=== PATIENT | female | born 1980 | race Caucasian/White ===

== ENCOUNTER 2016-05-22 09:29 | Emergency (ER) | payer OTHER ==
[2016-05-22] MEDS ORDERED: ONDANSETRON INJ 4 MG/2 ML VIAL IV ONE (10:17)
[2016-05-22 10:19] VITALS: TEMP 97.9
--- NOTE | 2016-05-22 11:03 | RAD ---
PROCEDURE: X-ray chest and three views of the abdomen Clinical History: lower abd pain Indication: Same as above Comparison: None Technique: 3.0 views of the abdomen and pelvis were done. Single view of the chest was done Findings: There is no gross evidence of free air in the abdomen or the pelvis . The small and large bowel gas pattern does not show any evidence of obstruction, ileus or bowel wall thickening. There is no visualization of radiopaque calculi in the outline of the urinary tract. There are no airspace infiltrates or pleural effusions. There are no pneumothoraces. The cardiac mediastinal silhouette is unremarkable There is presence of mild constipation. Impression: There is presence of mild constipation. There are no acute findings in the chest. Location of Interpretation: [id number] Electronically signed by: Manuel Horton MD 05/22/2016 11:02 AM SENIOR TREASURY ANALYST
[2016-05-22] MEDS ORDERED: LIDOCAINE VIS-MYLANTA 30 ML UD PO ONE (11:41)
[2016-05-22] MEDS ORDERED: MAGNESIUM HYDROXIDE 30 ML UD PO ONE (12:34)
--- NOTE | 2016-05-22 12:37 | ED.PDOC ---
History of Present Illness - General Chief Complaint: Abdominal Pain Stated Complaint: ABDOMINAL PAIN/NAUSEA Time Seen by Provider: 05/22/16 09:41 Source: patient Exam Limitations: no limitations - History of Present Illness Initial Comments: the patient is a 35-year-old female presenting to the emergency room secondary to approximately 12-16 hours of abdominal discomfort. Abdominal pain is worse in the lower abdomen primarily suprapubically but is also somewhat moving in nature. She is having some back pain to bilateral flanks with it. She is having some mild nausea with it. She does have some constipation problems. She has not had any fevers. Her only abdominal surgery is a tubal ligation. She is not having any pain is localizing to the right lower quadrant. Discomfort to palpation is slightly more in the suprapubic area but is fairly generalized. There is a large amount of palpable stool. No rebound or peritoneal signs. The patient denies diarrhea. She has not actually thrown up but has been nauseated. Severity: moderate Improving Factors: nothing Worsening Factors: nothing Associated Symptoms: loss of appetite, malaise, nausea/vomiting Allergies/Adverse Reactions: Allergies NO KNOWN ALLERGY Allergy (Unverified 01/01/16 09:24) Home Medications: Ambulatory Orders Lorazepam [Ativan] 1 mg PO BEDTIME 01/01/16 Paroxetine HCl [Paxil] 10 mg PO DAILY 01/01/16 Review of Systems - Review of Systems Constitutional: States: malaise EENTM: States: no symptoms reported Respiratory: States: no symptoms reported Cardiology: States: no symptoms reported Gastrointestinal/Abdominal: States: abdominal pain, constipation, nausea Genitourinary: States: frequency Musculoskeletal: States: back pain Skin: States: no symptoms reported Neurological: States: no symptoms reported All other Systems: No Change from Baseline Past Medical History (General) - Patient Medical History Hx Stroke: No Hx Asthma: No Hx Cardiac Disorders: No Hx Congestive Heart Failure: No Hx Diabetes: No Hx Gastroesophageal Reflux: No Hx MRSA: No - Vaccination History Hx Tetanus, Diphtheria Vaccination: Yes Hx Influenza Vaccination: No Hx Pneumococcal Vaccination: No - Social History Hx Tobacco Use: Yes Hx Chewing Tobacco Use: No Hx Alcohol Use: No Hx Substance Use: No Hx Substance Use Treatment: No Hx Depression: Yes Hx Physical Abuse: No Hx Emotional Abuse: No Hx Suspected Abuse: No - Female History Patient is a Female of Child Bearing Age (10 -59 yrs old): Yes Patient : No Family Medical History - Family History Mother Family History: Unknown Living Status: Unknown Maternal Grandparents Hx Cardiac Disease: Yes Hx Family Cancer: Yes - breast Physical Exam - Physical Exam General Appearance: Alert, Other - the patient is obviously uncomfortable Eye Exam: bilateral normal Ears, Nose, Throat: hearing grossly normal, normal ENT inspection, normal pharynx Neck: full range of motion, supple, normal inspection Respiratory: chest non-tender, lungs clear, normal breath sounds, no respiratory distress, no accessory muscle use Cardiovascular/Chest: normal peripheral pulses, regular rate, rhythm, no edema Peripheral Pulses: radial,right: 2+, radial,left: 2+, dorsalis pedis,right: 2+, dorsalis pedis,left: 2+ Gastrointestinal/Abdominal: soft, other - see history of present illness. No pulsatile palpable masses. Rectal Exam: deferred Back Exam: normal inspection, no CVA tenderness, no vertebral tenderness Extremity: normal range of motion, non-tender, normal inspection, no pedal edema , no calf tenderness, normal capillary refill Neurologic: alert, normal mood/affect, oriented x 3 Skin Exam: normal color Comments: Vital Signs - 24 hr 05/22/16 05/22/16 09:55 11:25 Temperature 97.9 F Pulse Rate [ 86 79 LEFT BRACHIAL] Respiratory 20 16 Rate Blood Pressure 99/64 113/71 [LAC] O2 Sat by Pulse 96 97 Oximetry repeat blood pressures systolic have ranged from 100-120. The patient has remained afebrile. No tachycardia. Progress - Progress Progress: 05/22/16 12:39 the patient is a 35-year-old female presenting with diffuse abdominal pain with radiation to bilateral flanks. Lab work and vitals are reassuring for a lack of infection. No evidence of urinary tract infection. No elevation of the white blood cell count. There is no localization of abdominal pain. X- ray is consistent with constipation. The pain pattern itself is consistent with constipation. Vital signs have remained stable. The patient will be treated for constipation with a dose of milk of magnesia here. She needs to take 2 tablespoons of castor oil when she gets home. Additionally she needs to increase her fluid intake and she needs to ambulate in order to stimulate bowel function. Once she has cleaned out she needs to take MiraLAX 2-3 times per week and increase her fiber intake. ER warnings were given for any worsening. If her abdominal pain worsens or the clinical picture changes then she may need a CT scan. One is not indicated at this time. Follow-up with primary care doctor early next week. 05/22/16 12:44 - Results/Orders Results/Orders: Laboratory Tests 05/22/16 05/22/16 05/22/16 09:42 10:05 10:30 WBC 7.9 RBC 4.75 Hgb 12.7 Hct 38.7 MCV 81.5 MCH 26.8 L MCHC 32.9 L RDW 15.4 H Plt Count 200 MPV 9.8 Absolute Neuts (auto) 6.00 Absolute Lymphs (auto) 1.30 Absolute Monos (auto) 0.40 Absolute Eos (auto) 0.20 Absolute Basos (auto) 0.00 Neutrophils % 76.1 Lymphocytes % 16.2 L Monocytes % 5.0 Eosinophils % 2.3 Basophils % 0.4 PT 10.5 INR 0.930 PTT (SP) 30.4 Sodium 141 Potassium 3.8 Chloride 107 Carbon Dioxide 26 Anion Gap 11.8 L BUN 11 Creatinine 0.71 BUN/Creatinine Ratio 15.5 Random Glucose 74 Serum Osmolality 279.3 Calcium 9.2 Total Bilirubin < 0.2 L AST 20 ALT 16 Alkaline Phosphatase 84 Creatine Kinase 71 CK-MB (CK-2) 1.3 CK-MB (CK-2) % Not Reportable Troponin I < 0.02 B-Natriuretic Peptide 13.6 Serum Total Protein 7.7 Albumin 4.0 Globulin 3.7 H Albumin/Globulin Ratio 1.1 Amylase 68 Lipase 32 Urine Color Yellow Urine Appearance Clear Urine pH 6.0 Ur Specific [place] 1.025 Urine Protein Negative Urine Glucose (UA) Negative Urine Ketones Negative Urine Blood Trace-intact H Urine Nitrite Negative Urine Bilirubin Negative Urine Urobilinogen 0.2 Ur Leukocyte Esterase Negative Urine RBC 1-3 Urine WBC 0 Ur Epithelial Cells 1-3 Urine Bacteria 0 Urine HCG, Qual Negative abdominal series shows no evidence of perforation or abnormal bowel gas pattern. No pneumonia. There is significant constipation. Departure - Departure Clinical Impression: Constipation by delayed colonic transit Disposition: Discharge to Home or Self Care Condition: Fair Departure Forms: ED Discharge - Pt. Copy, Patient Portal Self Enrollment Instructions: DI for Constipation Diet: regular diet - high fiber and increase fluid intake Activity: increase activity as tolerated Referrals: Deric Castillo MD [Primary Care Provider] - 1-5 Days Home Medications: Ambulatory Orders Lorazepam [Ativan] 1 mg PO BEDTIME 01/01/16 Paroxetine HCl [Paxil] 10 mg PO DAILY 01/01/16 Additional Instructions: the patient is a 35-year-old female presenting with diffuse abdominal pain with radiation to bilateral flanks. Lab work and vitals are reassuring for a lack of infection. No evidence of urinary tract infection. No elevation of the white blood cell count. There is no localization of abdominal pain. X- ray is consistent with constipation. The pain pattern itself is consistent with constipation. Vital signs have remained stable. The patient will be treated for constipation with a dose of milk of magnesia here. She needs to take 2 tablespoons of castor oil when she gets home. Additionally she needs to increase her fluid intake and she needs to ambulate in order to stimulate bowel function. Once she has cleaned out she needs to take MiraLAX 2-3 times per week and increase her fiber intake. ER warnings were given for any worsening. If her abdominal pain worsens or the clinical picture changes then she may need a CT scan. One is not indicated at this time. Follow-up with primary care doctor early next week.
[2016-05-22 13:07] VITALS: BP 115/71; O2SAT 99
== END 2016-05-22 12:55 | disposition home or self-care (01) ==
LOC: ER 09:29
DX: K59.01 Slow transit constipation (principal); Z87.891 Personal history of nicotine dependence
CPT/HCPCS: 36415; 74020; 80053; 81001; 81025; 82150; 82550; 82553; 83690; 83880; 84484; 85025; 85610; 85730; 87040; J2405

== ENCOUNTER 2017-03-03 19:17 | Emergency (ER) | payer SELFPAY ==
[2017-03-03 19:34] VITALS: TEMP 98.3; O2SAT 100
[2017-03-03] MEDS ORDERED: IBUPROFEN 200 MG TAB PO ONE (20:18)
--- NOTE | 2017-03-03 20:22 | ED.PDOC ---
History of Present Illness - General Chief Complaint: ENT Problem Stated Complaint: sore throat Time Seen by Provider: 03/03/17 19:37 Source: patient Exam Limitations: no limitations - History of Present Illness Initial Comments: the patient is a 36-year-old female presenting to the emergency room secondary to a sore throat and runny nose starting 6-8 hours ago. No shortness of breath. Very mild clearing cough. Low-grade fever. No vomiting. No syncope. No chest pain. No shortness of breath. Timing/Duration: 4-6 hours Severity: moderate Improving Factors: nothing Worsening Factors: nothing Associated Symptoms: loss of appetite, malaise Allergies/Adverse Reactions: Allergies NO KNOWN ALLERGY Allergy (Unverified 01/01/16 09:24) Home Medications: Ambulatory Orders Lorazepam [Ativan] 1 mg PO BEDTIME 01/01/16 Paroxetine HCl [Paxil] 10 mg PO DAILY 01/01/16 Review of Systems - Review of Systems Constitutional: States: fever, malaise EENTM: States: nose congestion, throat pain Respiratory: States: cough Cardiology: States: no symptoms reported Gastrointestinal/Abdominal: States: no symptoms reported Genitourinary: States: no symptoms reported Musculoskeletal: States: other - mild body aches Skin: States: no symptoms reported Neurological: States: no symptoms reported Endocrine: States: no symptoms reported Hematologic/Lymphatic: States: no symptoms reported All other Systems: No Change from Baseline Past Medical History (General) - Patient Medical History Hx Stroke: No Hx Asthma: No Hx Cardiac Disorders: No Hx Congestive Heart Failure: No Hx Diabetes: No Hx Gastroesophageal Reflux: No Hx Cancer: No Hx Hepatitis C: No Hx MRSA: No - Vaccination History Hx Tetanus, Diphtheria Vaccination: Yes Hx Influenza Vaccination: No Hx Pneumococcal Vaccination: No Immunizations Up to Date: Yes - Social History Hx Tobacco Use: Yes Hx Chewing Tobacco Use: No Hx Alcohol Use: No Hx Substance Use: No Hx Substance Use Treatment: No Hx Depression: Yes Hx Physical Abuse: No Hx Emotional Abuse: No Hx Suspected Abuse: No - Female History Patient is a Female of Child Bearing Age (10 -59 yrs old): Yes Patient : No Family Medical History - Family History Mother Family History: Unknown Living Status: Unknown Maternal Grandparents Hx Cardiac Disease: Yes Hx Family Cancer: Yes - breast Physical Exam - Physical Exam General Appearance: Alert, No apparent distress Eye Exam: bilateral normal Ears, Nose, Throat: hearing grossly normal, nasal congestion, pharyngeal erythema Neck: full range of motion, supple Respiratory: lungs clear, normal breath sounds, no respiratory distress, no accessory muscle use Cardiovascular/Chest: normal peripheral pulses, regular rate, rhythm, no edema Peripheral Pulses: radial,right: 2+, radial,left: 2+, dorsalis pedis,right: 2+, dorsalis pedis,left: 2+ Gastrointestinal/Abdominal: non tender, soft Rectal Exam: deferred Back Exam: normal inspection, no CVA tenderness Extremity: non-tender, normal inspection, no pedal edema, normal capillary refill Neurologic: carpenter rough II-XII nml as tested, no motor/sensory deficits, alert, normal mood/affect, oriented x 3 Skin Exam: normal color Comments: Vital Signs - 8 hr 03/03/17 03/03/17 19:30 19:31 Temperature 98.3 F Pulse Rate [ 105 H 105 H Left Radial] Respiratory 18 18 Rate Blood Pressure 136/84 [Right Arm] O2 Sat by Pulse 100 Oximetry Progress - Progress Progress: 03/03/17 20:21 the patient is a 36-year-old presenting with a sore throat and a runny nose. She has tested negative for flu and strep. The patient appears to have a common cold or viral upper respiratory tract infection. She needs to keep well hydrated. She can take Motrin every 8 hours with food to help reduce symptoms. Chloraseptic additionally may help reduce sore throat symptoms. Symptoms typically last 5-7 days. ER warnings were given for any acute worsening. Departure - Departure Clinical Impression: Common cold Disposition: Discharge to Home or Self Care Condition: Fair Departure Forms: ED Discharge - Pt. Copy, Patient Portal Self Enrollment Instructions: DI for Common Cold Diet: regular diet Activity: increase activity as tolerated Referrals: Deric Castillo MD [Primary Care Provider] - 1-5 Days Home Medications: Ambulatory Orders Lorazepam [Ativan] 1 mg PO BEDTIME 01/01/16 Paroxetine HCl [Paxil] 10 mg PO DAILY 01/01/16 Additional Instructions: the patient is a 36-year-old presenting with a sore throat and a runny nose. She has tested negative for flu and strep. The patient appears to have a common cold or viral upper respiratory tract infection. She needs to keep well hydrated. She can take Motrin every 8 hours with food to help reduce symptoms. Chloraseptic additionally may help reduce sore throat symptoms. Symptoms typically last 5-7 days. ER warnings were given for any acute worsening.
[2017-03-03 20:31] VITALS: BP 128/74
== END 2017-03-03 20:31 | disposition home or self-care (01) ==
LOC: ER 19:17
DX: J00 Acute nasopharyngitis [common cold] (principal)

== ENCOUNTER 2017-10-10 19:42 | Emergency (ER) | payer OTHER ==
[2017-10-10 19:56] VITALS: TEMP 98.2; O2SAT 99
[2017-10-10] MEDS ORDERED: HYDROcodone 7.5MG/APAP 325MG 1 EA TAB PO ONE (21:58)
--- NOTE | 2017-10-10 22:00 | ED.PDOC ---
History of Present Illness - General Chief Complaint: Problem Stated Complaint: supra pubic pain, pink tinge urine Time Seen by Provider: 10/10/17 19:47 Source: patient Exam Limitations: no limitations - History of Present Illness Initial Comments: the patient is a 37-year-old female presenting to the emergency room secondary to some lower abdominal and pelvic discomfort present for the last 24- 48 hours. She does have some significant chronic constipation and has been a little more constipated than normal recently. She had a hysterectomy approximately 3 months ago. She is not having any fevers. No significant vaginal discharge. No difficulty with urination. No burning. Timing/Duration: unsure Severity: moderate Improving Factors: nothing Worsening Factors: nothing Associated Symptoms: denies symptoms Allergies/Adverse Reactions: Allergies NO KNOWN ALLERGY Allergy (Unverified 01/01/16 09:24) Home Medications: Ambulatory Orders Lorazepam [Ativan] 1 mg PO BEDTIME 01/01/16 Escitalopram [Lexapro] 10 mg PO 10/10/17 Review of Systems - Review of Systems Constitutional: States: no symptoms reported EENTM: States: no symptoms reported Respiratory: States: no symptoms reported Cardiology: States: no symptoms reported Gastrointestinal/Abdominal: States: see HPI Genitourinary: States: see HPI Musculoskeletal: States: no symptoms reported Skin: States: no symptoms reported Neurological: States: no symptoms reported Endocrine: States: no symptoms reported All other Systems: No Change from Baseline Past Medical History (General) - Patient Medical History Hx Stroke: No Hx Asthma: No Hx Cardiac Disorders: No Hx Congestive Heart Failure: No Hx Diabetes: No Hx Gastroesophageal Reflux: No Hx Cancer: No Hx Hepatitis C: No Hx MRSA: No Surgical History: Hysterectomy - Vaccination History Hx Tetanus, Diphtheria Vaccination: Yes Hx Influenza Vaccination: No Hx Pneumococcal Vaccination: No Immunizations Up to Date: No - Social History Hx Tobacco Use: Yes Hx Chewing Tobacco Use: No Hx Alcohol Use: No Hx Substance Use: No Hx Substance Use Treatment: No Hx Depression: Yes Hx Physical Abuse: No Hx Emotional Abuse: No Hx Suspected Abuse: No - Female History Patient : No Family Medical History - Family History Mother Family History: Unknown Living Status: Unknown Maternal Grandparents Hx Cardiac Disease: Yes Hx Family Cancer: Yes - breast Physical Exam - Physical Exam General Appearance: Alert, Comfortable, No apparent distress Eye Exam: bilateral normal Ears, Nose, Throat: normal ENT inspection, normal pharynx Neck: full range of motion, supple Respiratory: lungs clear, normal breath sounds, no respiratory distress, no accessory muscle use Cardiovascular/Chest: normal peripheral pulses, regular rate, rhythm, no edema Peripheral Pulses: radial,right: 2+, radial,left: 2+, dorsalis pedis,right: 2+, dorsalis pedis,left: 2+ Gastrointestinal/Abdominal: soft, other - mild suprapubic discomfort palpation. No definite palpable mass. No rebound or peritoneal signs. Rectal Exam: other - pelvic exam shows minimal discharge. No definite cervical motion tenderness. No bleeding. No obvious mass. Back Exam: no CVA tenderness, no vertebral tenderness Extremity: non-tender, normal inspection, no pedal edema, normal capillary refill Neurologic: chalk cutter II-XII nml as tested, alert, normal mood/affect, oriented x 3 Skin Exam: normal color Comments: Vital Signs - 24 hr 10/10/17 19:53 Temperature 98.2 F Pulse Rate [ 88 Right] Respiratory 20 Rate Blood Pressure 111/74 [Left Arm] O2 Sat by Pulse 99 Oximetry Progress - Progress Progress: 10/10/17 22:01 the patient is a 37-year-old female presenting with lower abdominal and pelvic pain that is most likely due to a mild strain at the operative site. No elevation of the white blood cell count and no fever. No significant drainage. Pelvic exam was reassuring. The patient can take ibuprofen or Aleve for discomfort. She does have some chronic constipation and I would recommend that she take MiraLAX mixed with Metamucil daily. Straining on the toilet may be causing some strain at the operative site as well as giving her some additional pain. ER warnings are given for any significant worsening. Obviously if she does have worsening of symptoms then additional imaging may be warranted at that time. For now she should follow up with her primary care doctor towards the end of the week. - Results/Orders Results/Orders: Laboratory Tests 10/10/17 10/10/17 10/10/17 20:04 20:11 20:11 WBC 9.3 RBC 4.75 Hgb 12.3 Hct 37.1 MCV 78.0 L MCH 26.0 L MCHC 33.3 RDW 18.6 H Plt Count 196 MPV 9.5 Absolute Neuts (auto) 6.60 Absolute Lymphs (auto) 1.70 Absolute Monos (auto) 0.70 Absolute Eos (auto) 0.20 Absolute Basos (auto) 0.10 Neutrophils % 70.7 Lymphocytes % 18.6 L Monocytes % 7.0 Eosinophils % 2.5 Basophils % 1.2 Sodium 141 Potassium 3.9 Chloride 107 Carbon Dioxide 26 Anion Gap 11.9 L BUN 10 Creatinine 0.64 BUN/Creatinine Ratio 15.6 Random Glucose 123 H Serum Osmolality 281.7 Calcium 8.8 Total Bilirubin < 0.2 L AST 22 ALT 19 Alkaline Phosphatase 77 Serum Total Protein 7.4 Albumin 3.7 Globulin 3.7 H Albumin/Globulin Ratio 1.0 L Urine Color Yellow Urine Appearance Clear Urine pH 5.5 Ur Specific [place] >= 1.030 Urine Protein Negative Urine Glucose (UA) Negative Urine Ketones Negative Urine Blood Trace-intact H Urine Nitrite Negative Urine Bilirubin Negative Urine Urobilinogen 0.2 Ur Leukocyte Esterase Negative Urine RBC 0-1 Urine WBC 3-5 H Ur Epithelial Cells 3-5 Urine Bacteria Rare wet prep is negative. Departure - Departure Clinical Impression: Chronic constipation, Pelvic pain Disposition: Discharge to Home or Self Care Condition: Fair Departure Forms: ED Discharge - Pt. Copy, Patient Portal Self Enrollment Instructions: Constipation, Adult (DC) Diet: regular diet - high-fiber Activity: increase activity as tolerated Referrals: Deric Castillo MD [Primary Care Provider] - 1-2 Weeks Home Medications: Ambulatory Orders Lorazepam [Ativan] 1 mg PO BEDTIME 01/01/16 Escitalopram [Lexapro] 10 mg PO 10/10/17 Additional Instructions: the patient is a 37-year-old female presenting with lower abdominal and pelvic pain that is most likely due to a mild strain at the operative site. No elevation of the white blood cell count and no fever. No significant drainage. Pelvic exam was reassuring. The patient can take ibuprofen or Aleve for discomfort. She does have some chronic constipation and I would recommend that she take MiraLAX mixed with Metamucil daily. Straining on the toilet may be causing some strain at the operative site as well as giving her some additional pain. ER warnings are given for any significant worsening. Obviously if she does have worsening of symptoms then additional imaging may be warranted at that time. For now she should follow up with her primary care doctor towards the end of the week.
[2017-10-10 22:10] VITALS: BP 108/70
== END 2017-10-10 22:10 | disposition home or self-care (01) ==
LOC: ER 19:42
DX: K59.09 Other constipation (principal); R10.2 Pelvic and perineal pain; Z87.891 Personal history of nicotine dependence

== ENCOUNTER 2017-10-12 16:14 | Emergency (ER) | payer OTHER ==
--- NOTE | 2017-10-12 16:32 | ED.PDOC ---
History of Present Illness - General Chief Complaint: Abdominal Pain Time Seen by Provider: 10/12/17 16:30 Source: patient, RN notes reviewed Additional Information: 37 YEAR OLD HERE WITH COMPLAINTS OF ABDOMINAL PAIN IN THE RIGHT LOWER QUADRANT NON RADIATING ASSOCIATED WITH CONSTIPATION SHE HAS NOT HAD A BOWEL MOVEMENT IN 3 -4 DAYS SHE HAS NO FEVER CHILLS NO DYSURIA NO FLANK PAIN NAUSEATED BUT NO VOMITING SHE HAS A TENDENCY TO CONSTIPATION SINCE HER YOUNG AGE BUT USUALY HAS A BM EVERY THIRD DAY SHE HAS BEEN PASSING FLATUS - History of Present Illness Severity: moderate Improving Factors: nothing Worsening Factors: nothing Associated Symptoms: denies symptoms Allergies/Adverse Reactions: Allergies NO KNOWN ALLERGY Allergy (Unverified 01/01/16 09:24) Home Medications: Ambulatory Orders Lorazepam [Ativan] 1 mg PO BEDTIME 01/01/16 Escitalopram [Lexapro] 10 mg PO 10/10/17 Dicyclomine HCl [Bentyl] 20 mg PO TID #30 tab 10/12/17 Fluconazole [Diflucan Tab] 150 mg PO ONCE #1 tab 10/12/17 Review of Systems - Review of Systems Constitutional: States: no symptoms reported EENTM: States: no symptoms reported Respiratory: States: no symptoms reported Cardiology: States: no symptoms reported Gastrointestinal/Abdominal: States: see HPI Genitourinary: States: no symptoms reported Skin: States: no symptoms reported Neurological: States: no symptoms reported Endocrine: States: no symptoms reported Past Medical History (General) - Patient Medical History Hx Stroke: No Hx Asthma: No Hx of COPD: No Hx Cardiac Disorders: No Hx Congestive Heart Failure: No Hx Hypertension: No Hx Diabetes: No Hx Gastroesophageal Reflux: No Hx Cancer: No Hx Hepatitis C: No Hx MRSA: No - Vaccination History Hx Tetanus, Diphtheria Vaccination: Yes Hx Influenza Vaccination: No Hx Pneumococcal Vaccination: No Immunizations Up to Date: No - Social History Hx Tobacco Use: Yes Hx Chewing Tobacco Use: No Hx Alcohol Use: No Hx Substance Use: No Hx Substance Use Treatment: No Hx Depression: No Feels Threatened In Home Enviroment: No Feels Threatened In a Relationship: No Hx Physical Abuse: No Hx Emotional Abuse: No Hx Suspected Abuse: No - Female History Patient is a Female of Child Bearing Age (10 -59 yrs old): No Patient : No Family Medical History - Family History Mother Family History: Unknown Living Status: Unknown Maternal Grandparents Family History: Unknown Hx Cardiac Disease: Yes Hx Family Cancer: Yes - breast Physical Exam - Physical Exam General Appearance: Alert, Comfortable Eye Exam: bilateral normal Ears, Nose, Throat: hearing grossly normal, normal ENT inspection, normal pharynx Neck: non-tender, full range of motion, supple Respiratory: chest non-tender, lungs clear, normal breath sounds, no respiratory distress Cardiovascular/Chest: normal peripheral pulses, regular rate, rhythm, no edema Gastrointestinal/Abdominal: normal bowel sounds, non tender, no organomegaly Back Exam: normal inspection, no CVA tenderness Extremity: normal range of motion, non-tender, normal inspection 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 Copy, Patient Portal Self Enrollment Instructions: DI for Abdominal Pain-Adult Diet: full liquid diet Activity: increase activity as tolerated Referrals: Deric Castillo MD [Primary Care Provider] - 1-2 Weeks Prescriptions: Dicyclomine HCl [Bentyl] 20 mg PO TID #30 tab Fluconazole [Diflucan Tab] 150 mg PO ONCE #1 tab Home Medications: Ambulatory Orders Lorazepam [Ativan] 1 mg PO BEDTIME 01/01/16 Escitalopram [Lexapro] 10 mg PO 10/10/17 Dicyclomine HCl [Bentyl] 20 mg PO TID #30 tab 10/12/17 Fluconazole [Diflucan Tab] 150 mg PO ONCE #1 tab 10/12/17
--- NOTE | 2017-10-12 17:31 | RAD ---
EXAM DESCRIPTION: KUB CLINICAL HISTORY: 37 years, Female, ABD PAIN COMPARISON: May 22, 2016 FINDINGS: Nonobstructive bowel gas pattern. Moderate colonic stool. No abnormal calcifications. No acute osseous abnormality. IMPRESSION: No acute abnormality. Moderate colonic stool. Electronically signed by: Heriberto Olivera MD 10/12/2017 5:30 PM CDT
[2017-10-12] MEDS ORDERED: SODIUM PHOS/BIPHOS ENEMA ADULT 133 ML BTTL PR ONE (17:44)
[2017-10-12] MEDS ORDERED: MAGNESIUM CITRATE 300 ML BTTL PO ONE (17:45)
[2017-10-12 18:58] VITALS: BP 145/75; TEMP 98.6; O2SAT 100
== END 2017-10-12 19:00 | disposition home or self-care (01) ==
LOC: ER 16:14
DX: Z87.891 Personal history of nicotine dependence (principal)

== ENCOUNTER → 2020-02-21 | Outpatient (CLI) | payer OTHER ==
--- NOTE | 2020-02-22 09:33 | RAD ---
EXAM DESCRIPTION: Wrist,Left 3 Views CLINICAL HISTORY: pain in left wrist COMPARISON: None. IMPRESSION: 3 views of the left wrist show no acute fracture, focal bone destruction, or joint dislocation. Soft tissues are unremarkable. Electronically signed by: Cullen Pereira MD 02/22/2020 9:31 AM [facility]
== END ==
LOC: YCFC.O 13:09
PROVIDERS: ATTEND Family Medicine
DX: M25.532 Pain in left wrist (principal)

== ENCOUNTER → 2020-05-19 | Outpatient (CLI) | payer OTHER ==
--- NOTE | 2020-05-19 14:30 | RAD ---
EXAM DESCRIPTION: Chest,2 Views CLINICAL HISTORY: PRE OP - WRIST COMPARISON: None available FINDINGS: The cardiomediastinal silhouette is unremarkable. There is no airspace consolidation or pleural effusion. The bronchovascular markings are within normal limits, and the lungs are not hyperinflated. There is no pneumothorax or acute fracture. IMPRESSION: Negative exam. Electronically signed by: Jack Lang MD 05/19/2020 2:28 PM [facility]
== END ==
LOC: LAB.O 10:47
PROVIDERS: ATTEND Orthopaedic Surgery
DX: Z01.818 Encounter for other preprocedural examination (principal)